=== PATIENT | female | born 2000 | race Caucasian/White ===

== ENCOUNTER 2024-10-31 22:51 | Inpatient (IN) | payer MEDICAID ==
[~2024-10-31] VITALS: Ht 170.2 cm; Wt 75.7 kg
[2024-11-01 00:02] LABS: MEAN PLATELET VOLUME 9.7 FL (7.4-10.4); RED CELL DISTRIBUTION WIDTH 13.8 % (11.5-14.5)
[2024-11-01 00:11] LABS: CREATININE 0.63 MG/DL (0.40-0.90); TOTAL CARBON DIOXIDE 24.3 MMOL/L (24-32); eCRCL 127 ML/MIN; eGFR > 90 ML/MIN
[2024-11-01 00:20] LABS: ETHANOL < 10 MG/DL (<10)
[2024-11-01 00:34] LABS: URINE HCG NEGATIVE (NEG)
[2024-11-01 00:37] LABS: LEUKOCYTE ESTERASE ,URINE NEGATIVE (Neg); NITRITES, URINE NEGATIVE (Neg); OCCULT BLOOD,URINE NEGATIVE (Neg)
[2024-11-01 00:38] LABS: UA COLLECTION TYPE NON-SPECIFIED
[2024-11-01 00:48] LABS: URINE AMPHETAMINE SCREEN NEGATIVE (Neg); URINE BARBITUATE SCREEN NEGATIVE (Neg); URINE BENZODIAZEPINES SCREEN NEGATIVE (Neg)
[2024-11-01 00:49] LABS: URINE CANNABINOID SCREEN NEGATIVE (Neg); URINE COCAINE SCREEN NEGATIVE (Neg); URINE METHADONE SCREEN NEGATIVE (Neg); URINE OPIATE SCREEN NEGATIVE (Neg); URINE PHENCYCLIDINE SCREEN NEGATIVE (Neg)
--- NOTE | 2024-11-01 04:36 | Physician Documentation ---
History of Present Illness ~ Chief Complaint: Mental Health Eval Stated Complaint: MENTAL HEALTH EVAL Time Seen by MD: 22:54 Mode of Arrival: Dropped Off HPI 24 year old female BIB [facility] on 5150 after found on bench mumbling to self. Patient has few complaints other than that her body doesn't feel like her body. Medication Reconciliation Allergies: Coded Allergies: No Known Allergies (Unverified , 10/31/24) Review of Systems All Other Systems at this time: Reviewed and Negative Physical Exam Vital Signs: RN Vital Signs have been reviewed: Yes, Temperature: 98.6, Heart Rate: 96, Respiratory Rate: 10, BP: 123/84, Pulse Oximetry: 98, Weight: 69.200 Oxygen Flow Rate: 0 Physical Exam Gen: disheveled HEENT: PERRL, moist oral mucosa, EOMI Pulmonary: No respiratory distress MSK: no deformity Skin: w/d/i, no rash Neuro: alert, nonfocal Psych: normal affect Progress Results/Orders Results/Orders Orders - OLINDA DIAZ MD Med Rec (10/31/24 23:01) Close Observation Level (10/31/24 23:01) Covid19 Binax Poc Result Entry (10/31/24 23:01) Regular Diet (11/01/24 Breakfast) Completed Orders - OLINDA DIAZ MD Cbc/Diff (10/31/24 23:01) Urinalysis (10/31/24 23:01) Hcg, Ur Ql (10/31/24 23:01) Drug Screen, Urine (10/31/24 23:01) Ethanol (10/31/24 23:01) TSH (10/31/24 23:01) BMP (10/31/24 23:01) Vital Signs 10/31/24 10/31/24 22:54 23:51 Temp 98.6 Pulse 96 Resp 16 10 B/P (MAP) 123/84 Pulse Ox 98 O2 Flow Rate 0 Laboratory Tests Test 10/31/24 23:03 10/31/24 23:17 11/01/24 00:06 SARS-CoV-2 Antigen (Rapid) Negative White Blood Count 10.9 Red Blood Count 4.88 Hemoglobin 15.8 Hematocrit 46.0 H Mean Corpuscular Volume 94.1 Mean Corpuscular Hemoglobin 32.4 H Mean Corpuscular Hemoglobin Concent 34.5 Red Cell Distribution Width 13.8 Platelet Count 249 Mean Platelet Volume 9.7 Neutrophils (%) (Auto) 70.4 Lymphocytes (%) (Auto) 20.6 L Monocytes (%) (Auto) 8.3 Eosinophils (%) (Auto) 0.6 Basophils (%) (Auto) 0.1 Neutrophils # (Auto) 7.7 Lymphocytes # (Auto) 2.3 Monocytes # (Auto) 0.9 Eosinophils # (Auto) 0.1 Basophils # (Auto) 0.0 CBC Comment Sodium Level 135 Potassium Level 3.2 L Chloride Level 100 Carbon Dioxide Level 24.3 Anion Gap 11 Blood Urea Nitrogen 9 Creatinine 0.63 Estimated GFR/1.73 m2 > 90 BUN/Creatinine Ratio 14.3 Glucose Level 101 Calcium Level 10.1 Albumin 4.5 Thyroid Stimulating Hormone (TSH) 1.74 Chemistry Comments Ethyl Alcohol Level < 10 Urine Specimen Description Non-specified Urine Color Yellow Urine Clarity Clear Urine pH 6.0 Urine Specific [place] <=1.005 Urine Protein Negative Urine Glucose (UA) Negative Urine Ketones Negative Urine Occult Blood Negative Urine Nitrite Negative Urine Bilirubin Negative Urine Urobilinogen 0.2 Urine Leukocyte Esterase Negative Volume Urine Centrifuged 10 ml Urine HCG, Qualitative Negative Urine Comment Urine Opiates Screen Negative Urine Methadone Screen Negative Urine Fentanyl Screen Negative Urine Barbiturates Screen Negative Urine Phencyclidine Screen Negative Urine Amphetamines Screen Negative Urine Benzodiazepines Screen Negative Urine Cocaine Screen Negative Urine Cannabinoids Screen Negative Drug Screen Comment Medical Decision Making Findings 24 year old female with apparent drug intoxication and likely drug induced psychosis. Will sign out to oncoming ER physician for [facility] disposition. Differential Dx:Considerations: Include: Alcohol abuse, Bipolar disorder, Encephaloathy, Schizophrenia, Substance abuse Departure Disposition: 30 STILL A PATIENT Impression: Primary Impression: Acute psychosis Condition: Stable Discharge Instructions: Psychosis Referrals: NO PRIMARY CARE PROVIDER (PCP) Education Educated: Patient Signature Scribe Signature: . Attestation: . OLINDA DIAZ MD Nov 01, 2024 04:36
[2024-11-01] MEDS ORDERED: magnesium hydroxide 30ml (MOM) UD suspension PO PRN (18:40)
[2024-11-01] MEDS ORDERED: mag hydrox/Alum hydrox/simeth 30ml oral suspension PO PRN (18:40)
[2024-11-01 19:00] VITALS: RESP 18; O2SAT 100
[2024-11-01] MEDS: POTASSIUM BICARB 20meq eff tab 20 MEQ TABLET.EFF PO STA (19:00)
[2024-11-01 20:00] VITALS: BP 119/74; PULSE 88; RESP 18; TEMP 98.4; O2SAT 100
[2024-11-02 07:00] VITALS: RESP 13
[2024-11-02] MEDS: nicotine 21mg patch - 24 hr TD SCH (07:55)
--- NOTE | 2024-11-02 12:43 | HISTORY AND PHYSICAL ---
History of Present Illness History of Present Illness Pt admitted on a 5150 GD,after she found on bench mumbling to self. Per ED report, patient has few complaints other than that her body doesn't feel like h er body refused assessment in the unit citing that she is very tired. Per chart note, pt arrived in the unit from ED via a wheel chair, was mostly mumbling incoherently, with disorganized speech/thought process, RIS. Has been sleeping since she came to the unit. No safety concerns reported Toxicology =negative of all substances Allergies: Coded Allergies: No Known Allergies (Unverified , 10/31/24) Past Psychiatric History Psychiatric History Not able to obtain at this time Personal History Social Activity NOT ABLE TO OBTAIN AT THIS TIME Developmental Histroy and NOT ABLE TO OBTAIN AT THIS TIME Mental Status Exam OBSERVATION Comments PATIENT REFUSED ASSESSMENT BEHAVIOR: UNCCOPERATIVE INSIGHT: POOR-REFUSING ASSESSMENT JUDGMENT: POOR Assessment/Plan Problems/Diagnosis: (1) Acute psychosis Additional Plan TREATMENT; 1. Zyprexa 10 mg hs 2. Trazodone 50 mg prn insomnia Continue Q 15 safety checks Total time spend is 35 minutes including but not limited to lab/chart/imaging review, discussions with pt RN/SW/CN, ordering meds/labs and documentation Discharge: Unsure at this time, pt presents with acute psychosis, she is also refusing assessment CODING VISIT-PSYCHIATRY Date of Service: Nov 02, 2024 Billing Provider: ILENE REESE DNP Psych Common Visit Codes: [id number] INP/OBS CARE (High) ILENE REESE DNP Nov 02, 2024 12:43
[2024-11-02] MEDS ORDERED: NO HOME MEDS (15:30)
[2024-11-02 19:06] VITALS: RESP 15
[2024-11-02 19:26] VITALS: RESP 16
--- NOTE | 2024-11-02 19:38 | HISTORY AND PHYSICAL ---
History & Physical Providers to CC ~ History of Present Illness Reason for Admit\Complaint: Depression on a 5150 hold History of Present Illness This is the hospitalist history and physical exam on patients hospitalized at [facility] [place] [facility]. The patient was found mumbling to herself on a bench and is admitted for 5150 for being gravely disabled. The patient was wanting to sleep in bed when I went and evaluated her she asked me to come back later I informed her that is I would not be able to do this and thus she answered my questions. The patient has no acute medical complaints or concerns. Allergies: Coded Allergies: No Known Allergies (Unverified , 10/31/24) Home Medications Home Medications Active Reported No Home Medications (Home Med List) Each Past Medical History Past Medical History Depression Past Surgical History Surgical History Comment No prior surgeries Family History Family History: Patient reports no known family medical history. Past Social History Social History Comment Patient denes history of smoking/ drinking alcohol nor any illicit drug use ROS ROS Except for positives in the HPI the rest of the 14 point review systems is negative Exam Vitals: Vital Signs Date Time Temp Pulse Resp B/P (MAP) Pulse Ox O2 Delivery O2 Flow Rate FiO2 11/02/24 19:26 16 Room Air 11/01/24 20:00 98.4 88 119/74 (89) 100 11/01/24 06:01 0 General: Gen. No acute distress, flat affect Lungs clear to ascultation bilaterally, no wheezes rales or rhonchi appreciated Heart normal sinus rhythm no murmurs rubs or clicks noted Abdomen soft nontender bowel sounds are normoactive Lower extremities no clubbing cyanosis, nor edema appreciated bilaterally Diagnostic Data Last Recorded Lab Results: 10/31/24231610/31/242316 Problems: (1) Unspecified psychosis Additional Plan # gravely disabled On a 5150 hold Followed by Psychiatry # hypokalemia Serum potassium of 3.2 on October 31 The patient refused potassium replacement as per nursing staff I ordered a repeat BMP Per nursing the patient is refusing lab draws The hospitalist service will continue to follow the patient Date of Service: Nov 02, 2024 Billing Provider: WALESKA STEVENSON DO Common Visit Codes: [id number] INP/OBS CARE (LOW) WALESKA STEVENSON DO Nov 02, 2024 19:38
[2024-11-03 07:00] VITALS: RESP 14; RESP 16
--- NOTE | 2024-11-03 18:57 | PROGRESS NOTE ---
Progress Note Dictate Providers to CC ~ Antibiotic Ordered?: No Objective Vitals Vital Signs Date Time Temp Pulse Resp B/P (MAP) Pulse Ox O2 Delivery O2 Flow Rate FiO2 11/03/24 07:00 14 11/03/24 07:00 Room Air 0.0 11/01/24 20:00 98.4 88 119/74 (89) 100 Lab Results: 10/31/24 2317 10/31/24 2317 Problem\Assessment\Plan Problems/Diagnosis: (1) Acute psychosis Psychiatrist's Progress Note Date of Service: Nov 03, 2024 Notes Pt admitted on a 5150 GD,after she found on bench mumbling to self. Per ED report, patient has few complaints other than that her body doesn't feel like her body. Per chart note, pt arrived in the unit from ED via a wheel chair, was mostly mumbling incoherently, with disorganized speech/thought process, RIS. Has been sleeping since she came to the unit. No safety concerns reported Assessment: Patient refused assessment, per chart notes, she has refused all assessments and treatment since admission. patient is not cooperative , has not provided a viable discharge plan, spends most of her day in her room sleeping which can be indicative of severe depression or other acute psych symptoms. Will extend hold due to ongoing acute psychiatric symptoms Mental Health Status: BEHAVIOR: UNCOOPERATIVE INSIGHT: POOR-REFUSING ASSESSMENT JUDGMENT: POOR Medication managemen 1. Zyprexa 10 mg hs 2. Trazodone 50 mg prn insomnia Continue Q 15 safety checks Legal: Convert to 5250 Total time spend is 30 minutes including but not limited to lab/chart/imaging review, discussions with pt RN/SW/CN, ordering meds/labs and documentation Discharge: Unsure at this time, pt presents with acute psychosis, she is also refusing assessment CODING VISIT-PSYCHIATRY Date of Service: Nov 03, 2024 Billing Provider: ILENE REESE DNP Psych Common Visit Codes: [id number] INP/OBS CARE(High) ILENE REESE DNP Nov 03, 2024 18:57
[2024-11-03 19:00] VITALS: RESP 18
[2024-11-03 20:00] VITALS: RESP 18
[2024-11-04 07:00] VITALS: RESP 16
[2024-11-04 19:02] VITALS: RESP 15
--- NOTE | 2024-11-04 19:17 | PROGRESS NOTE ---
Daily Progress Note Providers to CC ~ Antibiotic Timeout Antibiotic Ordered?: No Subjective Patient was seen in her room in mental health unit she refused to get examined but looked comfortable and answered my rest of the questions. Objective Vital Signs Date Time Temp Pulse Resp B/P (MAP) Pulse Ox O2 Delivery O2 Flow Rate FiO2 11/04/24 19:02 15 11/04/24 07:00 Room Air 11/03/24 07:00 0.0 11/01/24 20:00 98.4 88 119/74 (89) 100 Result Diagram: 10/31/24231610/31/242316 Patient looks comfortable does not want to get examined Problem\Assessment\Plan Problems/Diagnosis: (1) Unspecified psychosis # gravely disabled On a 5150 hold Followed by Psychiatry # hypokalemia Serum potassium of 3.2 on October 31, repeat potassium level ordered The hospitalist service will continue to follow the patient Date of Service: Nov 04, 2024 Billing Provider: MARLA CASTRO MD Common Visit Codes: [id number] INP/OBS CARE(LOW) MARLA CASTRO MD Nov 04, 2024 19:17
[2024-11-04 19:47] VITALS: RESP 17
--- NOTE | 2024-11-04 22:16 | PROGRESS NOTE ---
Progress Note Dictate Providers to CC ~ Antibiotic Ordered?: No Objective Vitals Vital Signs Date Time Temp Pulse Resp B/P (MAP) Pulse Ox O2 Delivery O2 Flow Rate FiO2 11/04/24 19:47 17 Room Air 11/03/24 07:00 0.0 11/01/24 20:00 98.4 88 119/74 (89) 100 Lab Results: 10/31/24 2317 10/31/24 2317 Problem\Assessment\Plan Problems/Diagnosis: (1) Acute psychosis Psychiatrist's Progress Note Date of Service: Nov 04, 2024 Notes Pt admitted on a 5150 GD,after she found on bench mumbling to self. Per ED report, patient has few complaints other than that her body doesn't feel like her body. Refused assessment in the unit citing that she is very tired. Per chart note, pt arrived in the unit from ED via a wheel chair, was mostly mumbling incoherently, with disorganized speech/thought process, RIS. Has been sleeping since she came to the unit. No safety concerns reported Assessment: Refused to be seen, per chart note, was alert today, loud, demanding, was irritated because she did not eat dinner, stated she had asked for the tray to be saved, apart from that, took her medication and was noted to be more active in the unit. No behavioral or safety concerns reported. Will take some time before any significant improvement in symptoms is seen in patient. Will continue to assess daily and adjust tx as needed. BEHAVIOR: UNCOOPERATIVE INSIGHT: POOR-REFUSING ASSESSMENT JUDGMENT: POOR TREATMENT; 1. Zyprexa 10 mg hs 2. Trazodone 50 mg prn insomnia Continue Q 15 safety checks Legal: Total time spend is 35 minutes including but not limited to lab/chart/imaging review, discussions with pt RN/SW/CN, ordering meds/labs and documentation Discharge: Unsure at this time, patient is compliant in taking meds but is refusing assessments, CODING VISIT-PSYCHIATRY Date of Service: Nov 04, 2024 Billing Provider: ILENE REESE DNP Psych Common Visit Codes: [id number] INP/OBS CARE(Mod) ILENE REESE DNP Nov 04, 2024 22:16
[2024-11-05 07:00] VITALS: RESP 16
[2024-11-05 08:00] VITALS: RESP 16
[2024-11-05 19:00] VITALS: RESP 14
[2024-11-05 20:00] VITALS: RESP 15
[2024-11-05] MEDS: NICOTINE POLACRILEX 2 MG LOZENGE BC PRN (22:02)
--- NOTE | 2024-11-05 22:16 | PROGRESS NOTE ---
Progress Note Dictate Providers to CC ~ Antibiotic Ordered?: No Objective Vitals Vital Signs Date Time Temp Pulse Resp B/P (MAP) Pulse Ox O2 Delivery O2 Flow Rate FiO2 11/05/24 08:00 16 Room Air 11/03/24 07:00 0.0 11/01/24 20:00 98.4 88 119/74 (89) 100 Lab Results: 10/31/24 2317 10/31/242316 Problem\Assessment\Plan Problems/Diagnosis: (1) Acute psychosis Psychiatrist's Progress Note Date of Service: Nov 05, 2024 Notes Pt admitted on a 5150 GD,after she found on bench mumbling to self. Per ED report, patient has few complaints other than that her body doesn't feel like her body. Refused assessment in the unit citing that she is very tired. Per chart note, pt arrived in the unit from ED via a wheel chair, was mostly mumbling incoherently, with disorganized speech/thought process, RIS. Has been sleeping since she came to the unit. No safety concerns reported Assessment: Patient refused assessment with me, per chart notes, she also refused all nursing assessment including V/S, labs. Was sleeping most of the time. patient is taking her medication, no behavioral or safety concerns reported, will continue to monitor, and adjust tx as needed BEHAVIOR: UNCOOPERATIVE INSIGHT: POOR-REFUSING ASSESSMENT JUDGMENT: POOR TREATMENT; 1. Zyprexa 10 mg hs 2. Trazodone 50 mg prn insomnia Continue Q 15 safety checks Total time spend is 35 minutes including but not limited to lab/chart/imaging review, discussions with pt RN/SW/CN, ordering meds/labs and documentation Discharge: Unsure at this time, pt is refusing assessment CODING VISIT-PSYCHIATRY Date of Service: Nov 05, 2024 Billing Provider: ILENE REESE DNP Psych Common Visit Codes: [id number] INP/OBS CARE(Mod) ILENE REESE DNP Nov 05, 2024 22:16
[2024-11-06 08:00] VITALS: RESP 14; RESP 16
--- NOTE | 2024-11-06 14:48 | PROGRESS NOTE ---
Progress Note Dictate Providers to CC ~ Central Line/PICC still needed: N\A Antibiotic Ordered?: No Objective Vitals Vital Signs Date Time Temp Pulse Resp B/P (MAP) Pulse Ox O2 Delivery O2 Flow Rate FiO2 11/06/24 08:00 14 Room Air 11/03/24 07:00 0.0 Problem\Assessment\Plan Problems/Diagnosis: (1) Unspecified psychosis Psychiatrist's Progress Note Date of Service: Nov 06, 2024 Notes Augustina Sanchez is a 24yo female who was brought to the [facility] ED on a 5150 GD,after she found on bench mumbling to self. Per ED report, patient has few complaints other than that her body doesn't feel like her body. Patient is of average height and weight. She has long dark disheveled unwashed hair. She has on green hospital scrubs. Significant body odor and her surrounds are in disarray with food etc all over the bed. She says she wants some housing. She does not know if she has medical insurance or not. She does not remember why she is here. She states she is 'fine'. Denies depression or anxiety. Denies AH/VH or paranoid thinking. Does not express delusions. She says she is eating but missed her lunch because she was sleeping and would like it brought to her now at 4:30 in the afternoon. Food was offered. She says she came here because 'nowhere to go.' Says 'how the fuck did I get here?' She complains of her room and the current room mate stating she does not like her room mate. Wants to switch rooms. She isolates and has been sleeping a lot. Patient is a poor historian with very poor insight. Something trying to eat me... then says no I'm good. She makes odd comments then says 'oh never mind.' Mental Status Eye contact: Poor; Behavior: Mildly Cooperative. Very guarded, restless. Got up and paced around doing things as we talked. Speech: minimal but clear. A little bit disorganized. Sensoriom: Seems a bit confused. Mood: 'I'm fine' Affect: Constricted. Easily agitated. Thought process: Mild disorganization, Circumstantial at times. ? Paranoid Did not express Delusions. Thought Content: immediate needs/housing. Cognition: A&O X3 not truly why; Insight: Very Poor; Judgment: Very Poor; SI Denies/HI Denies, AH Denies, but is definitely seen responding to internal stimuli at times/VH Denies Results Of any Diagn. Testing Labs reviewed. Low potassium, but fairly WNL. TSH WNL HCG- NEG Toxicology =negative of all substances Treatment We will increase the Olanzapine. She is taking the medication and does seem to be starting to clear up. Some of her 'stuff' is behavioral. As she clears mentally we will see how much of her behaviors are from a possible comorbid personality disorder. Zyprexa 10 mg hs Trazodone 50 mg prn insomnia Monitoring by Staff, Milieu, Group, and Individual counseling as needed -- According to the [place] Suicide Assessment the above named patient is on Q 15 MINUTE CHECKS. 5250-- GD-- The patient is unable to formulate a viable plan for food, clothing and usp. We are still titrating medications to an effective dose while maintaining a therapeutic environment to prevent decompensation and readmission. DISCHARGE UNSURE AT THIS TIME. PATIENT IS HOMELESS REVIEW OF Clinical notes [X ] RN notes [X] PCT documentation [X] notes [X] Labs [ X] Medications [X] Care trends/care activity [X] Vitals [X] DISCUSSION WITH sign language instructor [X] CODING VISIT-PSYCHIATRY Date of Service: Nov 06, 2024 Billing Provider: ROBB ARSHAD Psych Common Visit Codes: [id number] INP/OBS CARE(High) ROBB ARSHAD Nov 06, 2024 14:48
[2024-11-06] MEDS: lactose-reduced food (Ensure Enlive) - 237ml bottle PO SCH (18:30)
[2024-11-06 19:00] VITALS: RESP 15
--- NOTE | 2024-11-06 19:41 | PROGRESS NOTE- Residence ---
Progress Note - Resident Providers to CC Resident Creating Document: MAINOR HUANG RES ~ Antibiotic Timeout Antibiotic Ordered?: No Objective Vital Signs Date Time Temp Pulse Resp B/P (MAP) Pulse Ox O2 Delivery O2 Flow Rate FiO2 11/06/24 08:00 14 Room Air 11/03/24 07:00 0.0 General: Awake and Alert, no acute distress. HEENT: Conjunctiva pink, Sclera clear, Mucus Membranes moist. Neck: Supple without masses and tenderness. Resp: Unlabored. Lungs clear to auscultation bilaterally. Heart: Regular Rate and rhythm, normal S1 and S2 without murmur, rub or gallop. Abdomen: It is soft, non tender, no rigidity,bowel sounds present. Extremities: No cyanosis,clubbing. Skin: Warm. Assessment Assessment Patient seen at [facility] unit. Patient denies any shortness of breath, denies chest pain or any other problem and looks comfortable. Plan Plan (1) Unspecified psychosis # gravely disabled On a 5150 hold Followed by Psychiatry # hypokalemia Serum potassium of 3.2 on October 31 Repeat K level ordered. The hospitalist service will continue to follow the patient. Date of Service: Nov 06, 2024 Billing Provider: IVY KIM MD Common Visit Codes: [id number] INP/OBS CARE(MOD) MAINOR HUANG RES Nov 06, 2024 19:41 IVY KIM MD Nov 06, 2024 20:21
[2024-11-06 20:00] VITALS: RESP 15
[2024-11-07 07:00] VITALS: RESP 14
[2024-11-07 08:00] VITALS: RESP 14
--- NOTE | 2024-11-07 12:03 | PROGRESS NOTE ---
Progress Note Dictate Providers to CC ~ Central Line/PICC still needed: N\A Antibiotic Ordered?: No Objective Vitals Vital Signs Date Time Temp Pulse Resp B/P (MAP) Pulse Ox O2 Delivery O2 Flow Rate FiO2 11/07/24 08:00 14 Room Air 11/03/24 07:00 0.0 Problem\Assessment\Plan Problems/Diagnosis: (1) Unspecified psychosis Psychiatrist's Progress Note Date of Service: Nov 07, 2024 Notes Augustina Sanchez is a 24yo female who was brought to the [facility] ED on a 5150 GD,after she found on bench mumbling to self. Per ED report, patient has few complaints other than that her body doesn't feel like her body. Patient is of average height and weight. She has long dark disheveled unwashed hair. She has on green hospital scrubs. Significant body odor and her surrounds are in disarray with food etc all over the bed. Nothing going on. 'just waiting to get out of here.' Usually get a ride home. She wants to go to [facility]. Homeless. Denies AH/VH. Denies feeling paranoid. Denies depression. Some anxiety. She says she doesn't know why she was put here. 'nowhere else to put me.' 'I needed a place to say for a minute.' 'Sounds like someone has alzeheimers' People just trying to put me... and it's just nasty. She is refusing the medication. 'because I don't need it... and that is also not my voice.' She tried to sleep but slept only a little bit. 'I don't want to live anyone else's life... I just want to have my own voice.' She acts like she is responding to internal stimuli. She is nervous and guarded. Looking around the room. She says if she did take the med, then would she be able to leave? She says she won't take the medication even if she we give it to her. Mental Status Eye contact: Poor; Behavior: Mildly Cooperative. Very guarded, restless. Got up and paced around doing things as we talked. Speech: minimal but clear. A little bit disorganized. Sensoriom: Seems a bit confused. Mood: 'I'm fine' Affect: Constricted. Easily agitated. Thought process: Mild disorganization, Circumstantial at times. Definitely acting Paranoid Did not express Delusions. Thought Content: immediate needs/housing. Cognition: A&O X3 not truly why; Insight: Very Poor; Judgment: Very Poor; SI Denies/HI Denies, AH Denies, but is definitely seen responding to internal stimuli at times/VH Denies Results Of any Diagn. Testing Labs reviewed. Low potassium, but fairly WNL. TSH WNL HCG- NEG Toxicology =negative of all substances Treatment Encourage her to take the Olanzapine. She is taking the medication and does seem to be starting to clear up. Some of her 'stuff' is behavioral. As she clears mentally we will see how much of her behaviors are from a possible comorbid personality disorder. Zyprexa 20 mg hs Trazodone 50 mg prn insomnia Monitoring by Staff, Milieu, Group, and Individual counseling as needed -- According to the [place] Suicide Assessment the above named patient is on Q 15 MINUTE CHECKS. 5250-- GD-- The patient is unable to formulate a viable plan for food, clothing and alf. We are still titrating medications to an effective dose while maintaining a therapeutic environment to prevent decompensation and readmission. DISCHARGE UNSURE AT THIS TIME. PATIENT IS HOMELESS REVIEW OF Clinical notes [X ] RN notes [X] PCT documentation [X] SW notes [X] Labs [ X] Medications [X] Care trends/care activity [X] Vitals [X] DISCUSSION WITH manager lvn [X] CODING VISIT-PSYCHIATRY Date of Service: Nov 07, 2024 Billing Provider: ROBB ARSHAD Psych Common Visit Codes: [id number] INP/OBS CARE(Mod) ROBB ARSHAD Nov 07, 2024 12:03
[2024-11-07 19:00] VITALS: RESP 16; O2SAT 96
[2024-11-07 20:00] VITALS: BP 120/72; PULSE 101; RESP 16; TEMP 97.6; O2SAT 96
[2024-11-08 07:00] VITALS: RESP 16
[2024-11-08 08:00] VITALS: RESP 16
--- NOTE | 2024-11-08 17:43 | PROGRESS NOTE- Residence ---
Progress Note - Resident Providers to CC Resident Creating Document: ENRIQUETA RODRIGUEZ, RES ~ Antibiotic Timeout Antibiotic Ordered?: No Subjective Seen and examined the patient at bedside today. She stated that she does not have any systemic complaints. Objective Vital Signs Date Time Temp Pulse Resp B/P (MAP) Pulse Ox O2 Delivery O2 Flow Rate FiO2 11/08/24 08:00 16 11/08/24 07:00 Room Air 0.0 11/07/24 20:00 97.6 101 120/72 (88) 96 General: Awake and Alert, oriented to time, place, person. no acute distress. HEENT: Conjunctiva pink, Sclera clear, Mucus Membranes moist. Neck: Supple without masses and tenderness. Resp: Unlabored. Lungs clear to auscultation bilaterally. No crepitation/wheezing Heart: Regular Rate and rhythm, normal S1 and S2 without murmur, rub or gallop. Abdomen: It is soft, non tender, no rigidity,bowel sounds present. Extremities: No cyanosis,clubbing, pedal edema. Skin: Warm & moist. Advance Care Planning Advanced Care plannin - 30 Minutes Assessment Assessment Patient seen at [facility] unit. Patient denies any shortness of breath, denies chest pain or any other problem and looks comfortable. Plan Plan 1)Unspecified psychosis 2) Gravely disabled On a 5150 hold Followed by Psychiatry Hypokalemia Serum potassium of 3.2 on October 31 Ordered serum potassium and will follow up with the results Ordered 40 mEq of potassium supplements on 11/01/2024 and she refused the p.o. potassium. The hospitalist service will continue to follow the patient. Enriqueta Rodriguez IM resident, PGY 2 Date of Service: Nov 08, 2024 Billing Provider: LARRY GRAFF MD Common Visit Codes: [id number] INP/OBS CARE(MOD) ENRIQUETA RODRIGUEZ, FUAD Nov 08, 2024 17:43 LARRY GRAFF MD Nov 15, 2024 15:43
[2024-11-08 20:00] VITALS: RESP 16
--- NOTE | 2024-11-08 21:06 | PROGRESS NOTE ---
Progress Note Dictate Providers to CC ~ Antibiotic Ordered?: No Objective Vitals Vital Signs Date Time Temp Pulse Resp B/P (MAP) Pulse Ox O2 Delivery O2 Flow Rate FiO2 11/08/24 19:00 Room Air 11/08/24 08:00 16 11/08/24 07:00 0.0 11/07/24 20:00 97.6 101 120/72 (88) 96 Problem\Assessment\Plan Problems/Diagnosis: (1) Acute psychosis Psychiatrist's Progress Note Date of Service: Nov 08, 2024 Notes Notes Pt admitted on a 5150 GD,after she found on bench mumbling to self. Per ED report, patient has few complaints other than that her body doesn't feel like her body. Refused assessment in the unit citing that she is very tired. Per chart note, pt arrived in the unit from ED via a wheel chair, was mostly mumbling incoherently, with disorganized speech/thought process, RIS. Has been sleeping since she came to the unit. No safety concerns reported Assessment: Per report, patient is isolating, will only eat in her room, minimal interaction with staff or peers, mostly nods her head yes or no. Refused assessment today but is compliant with meds. no behavioral or safety concerns reported, will continue to monitor, and adjust tx as needed BEHAVIOR: UNCOOPERATIVE INSIGHT: POOR-REFUSING ASSESSMENT JUDGMENT: POOR TREATMENT; 1.Start Abilify 5 mg daily 2.Continue Zyprexa 20 mg hs 2. Trazodone 50 mg prn insomnia Continue Q 15 safety checks Total time spend is 35 minutes including but not limited to lab/chart/imaging review, discussions with pt RN/SW/CN, ordering meds/labs and documentation Discharge: Unsure at this time, pt is refusing assessment CODING VISIT-PSYCHIATRY Date of Service: Nov 08, 2024 Billing Provider: ILENE REESE DNP Psych Common Visit Codes: [id number] INP/OBS CARE(Mod) ILENE REESE DNP Nov 08, 2024 21:06
[2024-11-09 07:00] VITALS: BP 96/40; PULSE 63; RESP 16; TEMP 97.5; O2SAT 98
[2024-11-09 08:00] VITALS: RESP 16
[2024-11-09 19:00] VITALS: RESP 16
[2024-11-09 20:00] VITALS: RESP 16
--- NOTE | 2024-11-09 21:47 | PROGRESS NOTE ---
Progress Note Dictate Providers to CC ~ Antibiotic Ordered?: No Objective Vitals Vital Signs Date Time Temp Pulse Resp B/P (MAP) Pulse Ox O2 Delivery O2 Flow Rate FiO2 11/09/24 20:00 16 Room Air 11/09/24 07:00 97.5 63 96/40 (58) 98 11/08/24 07:00 0.0 Psychiatrist's Progress Note Notes HPI: 11/02/24 admitted on a 5150 hold for grave disability. Per records her main concern was her body dosnt feel like her body. On arrival to the unit was mumbling incoherently, disorganized speech/thought process, appeared to be responding to internal stimuli. Refused initial H&P assessment with provider, diagnosed with acute psychosis, was started on Olanzapine 10 mg po qhs. 11/06 provider notes indicate mild improvement in psychotic symptoms, olanzapine was increased. 11/01/24: Urine drug screen negative Psychiatric History: 11/04/24 per Lizzie RN note: Mother called and provided some insight into Solo's pass. mother stated that patient began suffering with anxiety when she was a teenager. drug started with marijuana and eventually led to heroin use. patient's mother stated that they could no longer have her in the house when she brought needles and heroin into the home. patient has been hospitalized for mental illness 10 to 12 times or more. she's been in and out of rehabs and sober livings. her mother stated that patient has been hitchhiking Recently and ended up with someone named jose. this person has called here multiple times trying to get information on the p atient and her discharge. it is unknown if this patient is linked to her arrival at the hospital. patient's mother does not want her to have contact with him. she is very worried about what has happened to her with this man, and another man who left her out of state, and she didn't know where she was or how to get home. her mother said that she has been staying in a motorhome with one of these men. her mother has filed a missing person report. should you leave that her daughter Solo is here and safe. Current Psychosocial Dynamics: Homeless. Per nursing notes a male called asking to talk to solo and she was adamant that one no talk to the man. - 11/09 Assesment Per 11/09/24 case management note by Lorrie TOLEDOW: Unsure of how she got to [place], [place]. Wants to go to nursing home, unsure of what nursing home. patient has no resources and is at high risk of further decompensation if discharged prematurely The patient spent the majority of the day sleeping in her room, denied anxiety, SI, HI, stated she didnt want to talk today. Not participating in the milieu or groups, has been refusing to eat in the group room. Status: 5250- Grave Disability, she is unable to formulate a viable plan for maintaining nutrition, nursing home, clothing due to severity of disorganized behavior. Suicide/Self Harm Risk: low Violence Risk: low Elopement Risk: low Fall risk: low - Medications: Aripiprazole 5 mg po qd - refused (initially prescribed on 11/08, hasnt started med) Olanzapine 20 mg po qhs- taking Ensure BID- taking PRNS: (no recent administrations) Thorazine 50 mg po Q6 Prn agitation Hydroxyzine 50 mg po Q6 PRN anxiety Trazodone 50 mg po prn insomnia Acetaminophen 650 mg q4H prn pain Bendryl 50 mg po prn for EPS Loperamide 2 mg po prn diarrhea Magnesium Hydroxide 30 ml prn constipation AL Hydroxyide/Mg Hydroxide 30 ml prn dyspepsia - Side Effects: Denies No evidence of TD, EPS AIMs: 0 - Review of Psychiatric Symptoms: Mood: Persistent depression, withdrawn, isolative Suicide/self-harm: denies Sleep: quality sleep, hypersomnia- spending the majority of the day in bed Appetite: adequate denies concerns Energy: poor, low motivation Anxiety: denies Irritability: per nursing reports has been sarcastic and irritable at times Homicidal/Anger: denies Hallucinations/Paranoia: denies AVH, no overt paranoia verbalized, Trauma symptoms: Denies - Historical Psych Medications: none noted - Mental Status Evaluation General Appearance: poorly groomed Eye contact: avoidant, Demeanor: withdrawn Orientation: to person, place, time, situation Speech: Appropriate rate/rhythm/volume Psychomotor Activity:decreased Gait: steady Mood: ok Affect: blunted Suicidality: denies suicidal ideation Homicidally: denies Thought content: consistent with social norms Thought process: poverty of thought Thought perceptions: no perceptual disorder noted Memory: appears intact Attention: appear attentive Insight: limited Judgment: limited - Review of Physical Systems: Denies malaise, other flu like symptoms Denies falls, fatigue, weakness, confusion, dizziness, memory loss Denies tingling/numbness, tremor Denies SOB, chest pain, palpitations, fainting Denies nausea, diarrhea, constipation Denies chronic pain All other systems reviewed negative Current Medical Problems: Hypokalemia- 10/31/24 Potassium 3.2 11/01/24- Potassium 40 mEq ordered by patient refused medication -has been refusing follow up lab draw Medical History Allergies: No no allergies Cardiac HX: Denies TBI Hx: unable to assess Seizure Hx: unable to assess JUAN Hx: unable to assess Treatment Diagnoses Unspecified psychotic disorder Hx of polysubstance use, IVDU (Utox negative on admission) r/o trauma and stressor related disorder Assessment: Solo is a 24 year old male who presents for evaluation and treatment for psychosis unspecified, 5250 for grave disability. Since admission on 11/02/24 it appears that overt symptoms of psychosis are no longer observable. Continues to exhibit negative symptoms of psychosis, avolition, poverty of speech, isolating to room. Will continue the current dose of olanzapine to address. Will further reach out to mother to coordinate care, attain a more comprehensive psychiatric history with the aim to clarify diagnosis and improve context of patients current symptom presentation. Concern for inability to care for herself due to lack of functionality, lack of self care and capacity to community. Based on reported psychosocial situation before hospitalization concern that her inability to care for self is a significant vulnerability to exploitation by others. Safety risk: Low risk of imminent self-harm, Low risk of externalized violent behaviors. Plan Continue Olanzapine 20 mg po qhs Discontiue aripipraozle 5 mg po qd (no clear indication to start medication) Care coordination with mother Annette Care coordination with social work/operations support coordinator Continue Q15 min checks Encourage Groups/Milieu Engagement Discharge Plan: unclear Discussed risks, including possible adverse effects, and benefits of treatment recommendations including no treatment. Voice recognition software may have been used to dictate this note. There may be errors due to use of such software. Reporting of serious errors is appreciated. CODING VISIT-PSYCHIATRY Date of Service: Nov 09, 2024 Billing Provider: AVINASH DEL ANGEL DNP Psych Common Visit Codes: [id number] INP/OBS CARE(Mod) AVINASH DEL ANGEL [facility] Nov 09, 2024 21:46
[2024-11-10 07:00] VITALS: RESP 14
[2024-11-10 08:00] VITALS: RESP 16
--- NOTE | 2024-11-10 10:34 | PROGRESS NOTE ---
Daily Progress Note Providers to CC No new complaint today, resting comfortably in the bed ~ Central Line/PICC still needed: No Rowell-Non Protocol Rowell Indications Met/Not Met: F/C Indications Not Met Antibiotic Timeout Antibiotic Ordered?: No MRSA Education MRSA Education Provided to pt: No Subjective As above Objective Vital Signs Date Time Temp Pulse Resp B/P (MAP) Pulse Ox O2 Delivery O2 Flow Rate FiO2 11/10/24 08:00 16 Room Air 11/09/24 07:00 97.5 63 96/40 (58) 98 11/08/24 07:00 0.0 Vital signs, stable ,afebrile. Pulse Oximetry reflects adequate oxygenation. General: well developed, well nourished. Awake , alert, and oriented x4, resting comfortably in the bed, in no acute distress . Skin: Warm, dry, no pallor, no rash or petechiae. HEENT: Atraumatic, normocephalic, EOMI, anicteric sclera B; pink conjunctiva; PERRLA, normal oropharynx, moist oral and nasal mucosa. Tympanic membrane , nose , throat clear. Neck: Trachea midline. Supple, full range of motion, no JVD, bruit , hepatojugular reflex , lymphadenopathy or masses, or other lesions Cardiac: Regular rhythm, regular rate no murmurs, rubs, or gallops. Normal S1 and S2, no S3 noticed. PMI is normal. Respiratory: Equal breath sounds bilaterally, no tachypnea; lungs clear to auscultation bilaterally, no wheezing ,rub or rales, or crackles. Chest wall is symmetric and without deformity. No signs of trauma. Chest wall is nontender. No signs of respiratory distress. Resonance is normal upon percussion bilaterally. Gastrointestinal: Abdomen symmetric, non-distended, soft, non-tender, normal bowel sounds x4 quadrant, normoactive, no hepatosplenomegaly , no masses , no bruit, no flank pain bilaterally. No voluntary guarding, rebound, or rigidity. No tenderness to percussion. No pulsatile masses. Equal femoral pulses. No Gatica's sign or McBurney point tenderness. Back; no CVA tenderness bilaterally, no deformities. Neck and back are without deformity as well. No tenderness noted on palpation of the spinous processes. Spinous processes are midline. Cervical, thoracic, and lumbar paraspinal muscles are not tender and are without spasm. : normal external genitalia, without lesions, swelling, masses or tenderness. Musculoskeletal: Extremities, normal range of motion, non-tender, muscle strength 5/5 x 4. Negative Homans signs bilaterally on lower extremity. Distal pulses full symmetrical, no clubbing, cyanosis , edema. Neurological: Speech is clear, alert, and oriented x 4. No motor or sensory deficit, deep tendon reflexes normal, cerebellar intact. Cranial nerves II-XII intact. Psych: Alert and or appropriate, normal affect. Vascular: Good distal pulses, which are equal x4; capillary refill less than 2 seconds. Lymphatic, no lymphadenopathy. Problem\Assessment\Plan Problems/Diagnosis: (1) Unspecified psychosis Assessment/plan # gravely disabled On a 5150 hold Followed by Psychiatry # hypokalemia Serum potassium of 3.2 on October 31, repeat potassium level ordered The hospitalist service will continue to follow the patient Sepsis Screening Reassessment Date: Nov 10, 2024 Date of Service: Nov 10, 2024 Billing Provider: CHEMA HOWE MD Common Visit Codes: [id number] INP/OBS CARE(LOW) CHEMA HOWE MD Nov 10, 2024 10:34
--- NOTE | 2024-11-10 19:44 | PROGRESS NOTE ---
Progress Note Dictate Providers to CC ~ Antibiotic Ordered?: No Objective Vitals Vital Signs Date Time Temp Pulse Resp B/P (MAP) Pulse Ox O2 Delivery O2 Flow Rate FiO2 11/10/24 19:00 Room Air 11/10/24 08:00 16 11/09/24 07:00 97.5 63 96/40 (58) 98 11/08/24 07:00 0.0 Psychiatrist's Progress Note Notes HPI: 11/02/24 admitted on a 5150 hold for grave disability. Per records her main concern was her body dosnt feel like her body. On arrival to the unit was m umbling incoherently, disorganized speech/thought process, appeared to be responding to internal stimuli. Refused initial H&P assessment with provider, diagnosed with acute psychosis, was started on Olanzapine 10 mg po qhs. 11/06 provider notes indicate mild improvement in psychotic symptoms, olanzapine was increased. 11/01/24: Urine drug screen negative Psychiatric History: 11/04/24 per Lizzie RN note: Mother called and provided some insight into Solo's pass. mother stated that patient began suffering with anxiety when she was a teenager. drug started with marijuana and eventually led to heroin use. patient's mother stated that they could no longer have her in the house when she brought needles and heroin into the home. patient has been hospitalized for mental illness 10 to 12 times or more. she's been in and out of rehabs and sober livings. her mother stated that patient has been hitchhiking Recently and ended up with someone named jose. this person has called here multiple times trying to get information on the patient and her discharge. it is unknown if this patient is linked to her arrival at the hospital. patient's mother does not want her to have contact with him. she is very worried about what has happened to her with this man, and ano ther man who left her out of state, and she didn't know where she was or how to get home. her mother said that she has been staying in a motorhome with one of these men. her mother has filed a missing person report. should you leave that her daughter Solo is here and safe. Current Psychosocial Dynamics: Homeless. Per nursing notes a male called asking to talk to solo and she was adamant that one no talk to the man. - 11/10 Assesment Per nursing staff has been out of her room more, making some brief conversation, expressing motivation to improve hygiene. Took her medication but refused vital signs. Expressed desire to talk to social work. On assessment today she states has had a little bit more energy in asad morning, feels very lethargic. Showered last night, would like to go home. States she would like to discharge, would like to get a pamphlet other support centers near [place]. Showered last night. Status: 5250- Grave Disability, she is unable to formulate a viable plan for maintaining nutrition, group home, clothing due to severity of disorganized behavior. Suicide/Self Harm Risk: low Violence Risk: low Elopement Risk: low Fall risk: low - Medications: Aripiprazole 5 mg po qd - Olanzapine 20 mg po qhs Ensure BID- taking PRNS: (no recent administrations) Thorazine 50 mg po Q6 Prn agitation Hydroxyzine 50 mg po Q6 PRN anxiety Trazodone 50 mg po prn insomnia Acetaminophen 650 mg q4H prn pain Bendryl 50 mg po prn for EPS Loperamide 2 mg po prn diarrhea Magnesium Hydroxide 30 ml prn constipation AL Hydroxyide/Mg Hydroxide 30 ml prn dyspepsia - Side Effects: Denies No evidence of TD, EPS AIMs: 0 - Review of Psychiatric Symptoms: Mood: denies depressed mood, withdrawn, isolative Suicide/self-harm: denies Sleep: quality sleep, hypersomnia- spending the majority of the day in bed Appetite: adequate Energy: poor, low motivation Anxiety: denies Irritability: denies Homicidal/Anger: denies Hallucinations/Paranoia: denies AVH, no overt paranoia verbalized, Trauma symptoms: Denies - Historical Psych Medications: none noted - Mental Status Evaluation General Appearance: poorly groomed Eye contact: avoidant, Demeanor: withdrawn Orientation: to person, place, time, situation Speech: Appropriate rate/rhythm/volume Psychomotor Activity:decreased Gait: steady Mood: fine Affect: blunted Suicidality: denies suicidal ideation Homicidally: denies Thought content: consistent with social norms Thought process: poverty of thought Thought perceptions: no perceptual disorder noted Memory: appears intact Attention: appear attentive Insight: limited Judgment: limited - Review of Physical Systems: Denies malaise, other flu like symptoms Denies falls, fatigue, weakness, confusion, dizziness, memory loss Denies tingling/numbness, tremor Denies SOB, chest pain, palpitations, fainting Denies nausea, diarrhea, constipation Denies chronic pain All other systems reviewed negative Current Medical Problems: Hypokalemia- 10/31/24 Potassium 3.2 11/01/24- Potassium 40 mEq ordered by patient refused medication -has been refusing follow up lab draw Medical History Allergies: No no allergies Cardiac HX: Denies TBI Hx: unable to assess Seizure Hx: unable to assess JUAN Hx: unable to assess - Treatment Diagnoses Unspecified psychotic disorder Hx of polysubstance use, IVDU (Utox negative on admission) r/o trauma and stressor related disorder Assessment: Solo is a 24 year old male who presents for evaluation and treatment for psychosis unspecified, 5250 for grave disability. Since admission on 11/02/24 it appears that overt symptoms of psychosis are no longer observable. Continues to exhibit negative symptoms of psychosis, avolition, poverty of speech, isolating to room. Appears more animated in the past 24 hours, has showered, is more conversational. Will decrease the current dose of olanzapine due to concerns of oversedation and will cross taper to aripiprazole. Will further reach out to mother to coordinate care, attain a more comprehensive psychiatric history with the aim to clarify diagnosis and improve context of patients current symptom presentation. Concern for inability to care for herself due to lack of functionality, lack of self care and capacity to community. Based on reported psychosocial situation before hospitalization concern that her inability to care for self is a significant vulnerability to exploitation by others. Safety risk: Low risk of imminent self-harm, Low risk of externalized violent behaviors. Plan Decrease Olanzapine from 15 to 20 mg po qhs Continue aripipraozle 5 mg po qd Care coordination with mother Annette Care coordination with social work/meeting coordinator Continue Q15 min checks Encourage Groups/Milieu Engagement Discharge Plan: Social work is working on coordinating care with mother and resources available in her home [facility]. Additionally been concern for her safety post discharge in regards to the gentleman who keeps calling the unit requesting information on her. Spent approximately 45 minutes reviewing records and test results, assessing and treatment planning, completing care coordination and documenting the encounter. Discussed risks, including possible adverse effects, and benefits of treatment recommendations including no treatment. Voice recognition software may have been used to dictate this note. There may be errors due to use of such software. Reporting of serious errors is appreciated. CODING VISIT-PSYCHIATRY Date of Service: Nov 10, 2024 Billing Provider: AVINASH DEL ANGEL DNP Psych Common Visit Codes: [id number] INP/OBS CARE(Mod) AVINASH DEL ANGEL DNP Nov 10, 2024 19:44
[2024-11-10 19:50] VITALS: BP 129/62; PULSE 95; RESP 16; TEMP 98.1; O2SAT 98
[2024-11-10 19:51] VITALS: RESP 16; O2SAT 98
[2024-11-10] MEDS: ibuprofen tablet 400 MG TABLET PO PRN (19:58)
[2024-11-10] MEDS: OLANZAPINE 5 MG TABLET PO SCH (19:58)
[2024-11-11 08:00] VITALS: BP 115/61; PULSE 89; RESP 16; TEMP 97.9; O2SAT 99
[2024-11-11] MEDS: potassium Cl 20 mEq SR tablet PO SCH (08:30)
[2024-11-11 19:00] VITALS: RESP 16
[2024-11-11 20:00] VITALS: RESP 16
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
[2024-11-12 07:00] VITALS: RESP 18
[2024-11-12 08:00] VITALS: RESP 18
--- NOTE | 2024-11-12 10:04 | PROGRESS NOTE ---
Daily Progress Note Providers to CC ~ Antibiotic Timeout Antibiotic Ordered?: No Objective Vital Signs Date Time Temp Pulse Resp B/P (MAP) Pulse Ox O2 Delivery O2 Flow Rate FiO2 11/11/24 20:00 16 11/11/24 19:00 Room Air 11/11/24 08:00 97.9 89 115/61 (79) 99 11/08/24 07:00 0.0 Gen. awake alert oriented asymptomatic HEENT: Normocephalic, atraumatic, extraocular movements are intact, sclera anicteric, conjunctiva pinkish, moist oral mucosa, no rash or ulcers. NECK: Supple, no JVD, trachea midline. CHEST: Clear to auscultation, no wheezes crackles or rhonchi. HEART: Regular rate rhythm, no murmur gallop or rub. ABDOMEN: Soft, nontender, no organomegaly. EXTREMITIES: No cyanosis clubbing or edema. NEURO EXAM: Grossly nonfocal. MUSCULOSKELETAL : No joint swelling or deformities. SKIN: No rash or ulcers noted. Problem\Assessment\Plan Problems/Diagnosis: (1) Unspecified psychosis Assessment/plan # gravely disabled :On a 5150 hold Followed by Psychiatry # hypokalemia : Replace per protocol The hospitalist service will continue to follow the patient. I will sign off Date of Service: Nov 12, 2024 Billing Provider: CHRISTINA CASTELAN MD Common Visit Codes: [id number] INP/OBS CARE(LOW) CHRISTINA CASTELAN MD Nov 12, 2024 10:04
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
[2024-11-12 19:00] VITALS: RESP 17; O2SAT 97
[2024-11-12 20:00] VITALS: BP 124/76; PULSE 94; RESP 17; TEMP 98; O2SAT 97
[2024-11-13 07:00] VITALS: RESP 16
[2024-11-13 08:00] VITALS: RESP 16
--- NOTE | 2024-11-13 12:20 | PROGRESS NOTE ---
Progress Note Dictate Providers to CC ~ Central Line/PICC still needed: N\\A Antibiotic Ordered?: No MRSA Education MRSA Education Provided to pt: No Objective Vitals Vital Signs Date Time Temp Pulse Resp B/P (MAP) Pulse Ox O2 Delivery O2 Flow Rate FiO2 11/12/24 20:00 98.0 94 17 124/76 (92) 97 Room Air 11/12/24 19:00 0.0 Psychiatrist's Progress Note Date of Service: Nov 13, 2024 Notes CHART REVIEW Pt is a 24-year-old female who was found by police sitting in a park on a bench mumbling and not making sense. Pt was placed on a hold for GD due to not being able to formulate a plan for food, clothing and care home. Pt has been difficult to assess since admit, refusing to talk, answering questions with on "yes" or "no" answers, refusing psychiatric assessments and medications. Pt continues to be gravely disabled and unable to formulate a plan for safety. A nursing note states that a male called for the pt and the pt was adament that no one talk to the man. Will continue to attempt to assess the pt for mh sx and safe discharge plan. ASSESSMENT The patient was interviewed in observation room. The patient was actively resting in bed with eyes open. The patient endorses "I am doing okay, I would like to take a shower." The patient endorses she would like her options open to go to [employer] or to her friend Zhane's [employer]. The patient endorses no worsening mental health symptoms. Denies SI. Denies HI. Denies AVH. The patient endorses adequate sleep and food intake. The patient is stable no acute distress noted. The patient as calm, cooperative, and engaged during session. Per staff report patient is medication compliant. Per staff report no abnormal behaviors. Will continue daily assessment and adjusting treatment as needed. Closely monitor behavior and response to medication during hospitalization. Appearnace: Other (APPROPRIATE. WEARING STREET CLOTHING. LONG BROWN HAIR.) Speech: Other (CIRCUMSTANTIAL. NORMAL RATE. NORMAL RHYTHM. NORMAL VOLUME.) Eye Contact: Normal Motor Activity: Normal Affect: Full Orientation Impairment: None Memory Impairment: None Attention: Normal Hallucinations: None Other: None Suicidality: None Homicidality: None Delusions: None Behavior: Cooperative Insight: Poor Judgment: Fair Treatment OLANZAPINE 2.5-5 MG P.O. PRN Q.12 HOURS OLANZAPINE 15 MG P.O. Q.H.S. BUPROPION SR 100 MG P.O. B.I.D. TRAZODONE 50 MG P.O. Q.H.S. PRN Monitoring by Staff, Milieu, Group, and Individual counseling as needed -- According to the [place] Suicide Assessment the above named patient is on Q15 MINUTE CHECKS. [id number]-Patient is unable to formulate a plan to safely meet their basic needs of food, clothing, and care home due to the severity of their mental illness. We are still titrating medications to an effective dose while maintaining a therapeutic environment to prevent decompensation and readmission. Total time spent 40 minutes on REVIEW OF Clinical notes [X ] RN notes [X] PCT documentation [X] SW notes [ X] Labs [ X] Medications [X] Care trends/care activity [X] Vitals [X] DISCUSSION WITH desk clerks supervisor [X] Staff SW [X] Treatment Team [X] Voice recognition software may have been used to dictate this note. There may be errors due to use of such software. Reporting of serious errors is appreciated. Discharge UNSURE AT THIS TIME. PATIENT IS ON LPS WAITING ON PLACEMENT CODING VISIT-PSYCHIATRY Date of Service: Nov 13, 2024 Billing Provider: SHIRIN JUARES APRN Psych Common Visit Codes: [id number] INP/OBS CARE(Mod) SHIRIN JUARES APRN Nov 13, 2024 12:20
[2024-11-13 19:00] VITALS: RESP 17; O2SAT 99
[2024-11-13 20:00] VITALS: BP 103/61; PULSE 100; RESP 17; TEMP 98.1; O2SAT 97
[2024-11-14 07:00] VITALS: RESP 13
[2024-11-14 10:00] VITALS: RESP 13
--- NOTE | 2024-11-14 11:56 | PROGRESS NOTE ---
Daily Progress Note Providers to CC ~ Antibiotic Timeout Antibiotic Ordered?: No Subjective None, patient is resting comfortably, she declines exam and states she was examined last night . Objective Vital Signs Date Time Temp Pulse Resp B/P (MAP) Pulse Ox O2 Delivery O2 Flow Rate FiO2 11/14/24 10:00 13 11/13/24 20:00 98.1 100 103/61 (75) 97 Room Air 11/13/24 19:00 0.0 Gen. awake alert oriented asymptomatic Declined exam Problem\Assessment\Plan Problems/Diagnosis: (1) Unspecified psychosis Assessment/plan # Gravely disabled adult :On a 5150 hold .Continue treat per psych recommendations # Hypokalemia : ReplaceD per protocol The hospitalist service will continue to follow the patient. I will sign off. Please contact the hospitalist team for any change in patient's medical condition. Date of Service: Nov 14, 2024 Billing Provider: CHRISTINA CASTELAN MD Common Visit Codes: [id number] INP/OBS CARE(LOW) CHRISTINA CASTELAN MD Nov 14, 2024 11:56
--- NOTE | 2024-11-14 14:41 | PROGRESS NOTE ---
Progress Note Dictate Providers to CC ~ Central Line/PICC still needed: N\\A Antibiotic Ordered?: No MRSA Education MRSA Education Provided to pt: No Objective Vitals Vital Signs Date Time Temp Pulse Resp B/P (MAP) Pulse Ox O2 Delivery O2 Flow Rate FiO2 11/14/24 10:00 13 11/14/24 07:00 Room Air 11/13/24 20:00 98.1 100 103/61 (75) 97 11/13/24 19:00 0.0 Psychiatrist's Progress Note Date of Service: Nov 14, 2024 Notes CHART REVIEW Pt is a 24-year-old female who was found by police sitting in a park on a bench mumbling and not making sense. Pt was placed on a hold for GD due to not being able to formulate a plan for food, clothing and longterm. Pt has been difficult to assess since admit, refusing to talk, answering questions with on "yes" or "no" answers, refusing psychiatric assessments and medications. Pt continues to be gravely disabled and unable to formulate a plan for safety. A nursing note states that a male called for the pt and the pt was adament that no one talk to the man. Will continue to attempt to assess the pt for mh sx and safe discharge plan. ASSESSMENT The patient was interviewed in observation room. The patient was actively ambulating in room. The patient endorses "alright." The patient endorses no worsening mental health symptoms. Denies SI. Denies HI. Denies AVH. The patient endorses adequate sleep and food intake. The patient is stable no acute distress noted. The patient as calm, cooperative, and engaged during session. Per staff report patient is medication compliant. Per staff report no abnormal behaviors. Will continue daily assessment and adjusting treatment as needed. Closely monitor behavior and response to medication during hospitalization. Appearnace: Other (APPROPRIATE. WEARING STREET CLOTHING. LONG BROWN HAIR) Speech: Impoverished (NORMAL RATE. NORMAL RHYTHM. NORMAL VOLUME) Eye Contact: Normal Motor Activity: Normal Affect: Full Orientation Impairment: None Memory Impairment: None Attention: Normal Hallucinations: None Other: None Suicidality: None Homicidality: None Delusions: None Behavior: Cooperative Insight: Poor Judgment: Fair Treatment OLANZAPINE 2.5-5 MG P.O. PRN Q.12 HOURS OLANZAPINE 15 MG P.O. Q.H.S. BUPROPION SR 100 MG P.O. B.I.D. TRAZODONE 50 MG P.O. Q.H.S. PRN Monitoring by Staff, Milieu, Group, and Individual counseling as needed -- According to the [place] Suicide Assessment the above named patient is on Q15 MINUTE CHECKS. [id number]-Patient is unable to formulate a plan to safely meet their basic needs of food, clothing, and longterm due to the severity of their mental illness. We are still titrating medications to an effective dose while maintaining a therapeutic environment to prevent decompensation and readmission. Total time spent 30 minutes on REVIEW OF Clinical notes [X ] RN notes [X] PCT documentation [X] SW notes [ X] Labs [ X] Medications [X] Care trends/care activity [X] Vitals [X] DISCUSSION WITH mathematical physicist [X] Staff SW [X] Treatment Team [X] Voice recognition software may have been used to dictate this note. There may be errors due to use of such software. Reporting of serious errors is appreciated. Discharge UNSURE AT THIS TIME. DISCHARGE HOME ONCE STABLE. CODING VISIT-PSYCHIATRY Date of Service: Nov 14, 2024 Billing Provider: SHIRIN JUARES APRN Psych Common Visit Codes: [id number] INP/OBS CARE(Mod) SHIRIN JUARES APRN Nov 14, 2024 14:41
[2024-11-14 19:00] VITALS: RESP 16; O2SAT 99
[2024-11-14 20:00] VITALS: BP 104/60; PULSE 102; RESP 16; TEMP 97.6; O2SAT 99
[2024-11-15 07:00] VITALS: RESP 15
--- NOTE | 2024-11-15 07:26 | ELECTROCARDIOGRAPH REPORT ---
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 CHARLETTE Felix Measurements Intervals [place] Rate: 109 P: 73 [place]: 152 QRS: 88 QRSD: 80 T: 54 QT: 317 QTc: 427 Interpretive Statements Sinus tachycardia Electronically Signed On 11-15-2024 16:44:[address] CHARLETTE Felix Please click the below link to view image of tracing.
[2024-11-15 08:00] VITALS: RESP 15
[2024-11-15 19:00] VITALS: RESP 16; O2SAT 99
[2024-11-15 20:00] VITALS: BP 103/73; PULSE 99; RESP 16; TEMP 98.4; O2SAT 99
[2024-11-16 07:00] VITALS: BP 107/54; PULSE 80; RESP 16; TEMP 98.4; O2SAT 99
[2024-11-16 08:00] VITALS: RESP 16; O2SAT 99
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
[2024-11-16] MEDS: loperamide 2mg capsule PO PRN (13:20)
[2024-11-16] MEDS: OLANZapine 5mg rapidly disint. tablet PO PRN (13:22)
--- NOTE | 2024-11-16 15:50 | PROGRESS NOTE ---
Daily Progress Note Providers to CC ~ Antibiotic Timeout Antibiotic Ordered?: No Subjective Patient was seen in mental health unit , patient looks comfortable ambulating denies any new concerns. As per patient and clinical nursing manager patient we will be discharge soon Objective Vital Signs Date Time Temp Pulse Resp B/P (MAP) Pulse Ox O2 Delivery O2 Flow Rate FiO2 11/16/24 08:00 16 99 Room Air 11/16/24 07:00 98.4 80 107/54 (71) 11/13/24 19:00 0.0 General-patient not in any acute distress, alert awake oriented, age- appropriate, looks comfortable HEENT-atraumatic normocephalic, neck supple without elevated JVD, No lymphadenopathy bilaterally. Eyes-no icterus or pallor seen in eyes Chest-clear to auscultation bilaterally, breathing nonlabored no tachypnea, no wheezing, no crepitation, no crackles. Heart-S1-S2 normal, regular heart rate no murmur Abdomen bowel sounds positive on auscultation, soft nondistended nontender no guarding, no rigidity Skin -dressing present over bilateral forearms Neurology-grossly intact, nonfocal alert awake oriented Extremity- no pedal edema able to move all 4 extremities Psychiatry - patient is not confused or agitated cooperated during physical examination Problem\Assessment\Plan Problems/Diagnosis: (1) Unspecified psychosis Assessment/plan # Gravely disabled adult :On a 5150 hold .Continue treat per psych recommendations # Hypokalemia : ReplaceD per protocol The hospitalist service will continue to follow the patient. I will sign off. Please contact the hospitalist team for any change in patient's medical cond ition. Date of Service: Nov 16, 2024 Billing Provider: MARLA CASTRO MD Common Visit Codes: [id number] INP/OBS CARE(LOW) MARLA CASTRO MD Nov 16, 2024 15:50
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
[2024-11-16 19:00] VITALS: RESP 16; O2SAT 97
[2024-11-16 20:00] VITALS: BP 106/57; PULSE 77; RESP 16; TEMP 97.2; O2SAT 97
[2024-11-17 07:00] VITALS: BP 99/54; PULSE 74; RESP 16; TEMP 97; O2SAT 99
[2024-11-17 08:00] VITALS: RESP 16; O2SAT 99
[2024-11-17] MEDS ORDERED: TRAZ-251 PO (09:14)
[2024-11-17] MEDS ORDERED: BUPR100T15 PO (09:14)
[2024-11-17] MEDS ORDERED: HYDR-3686 PO (09:14)
[2024-11-17] MEDS ORDERED: OLAN5TAB75 PO (09:14)
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
== END 2024-11-17 16:05 | disposition home or self-care (01) | DRG 751 ==
LOC: ER 22:52 → ADULT MH 11-01 16:50 → UNDOADMIN 11-01 16:50 → ADULT MH 11-02 03:50
PROVIDERS: ADMIT Psychiatry & Neurology Psychiatry; ATTEND Psychiatry & Neurology Psychiatry
PROC: GZHZZZZ Group Psychotherapy (ICD-10-PCS; principal; 2024-11-06)
PROC: GZ51ZZZ Individual Psychotherapy, Behavioral (ICD-10-PCS; 2024-11-06)
DX: F23 Brief psychotic disorder (principal); E87.6 Hypokalemia; F41.9 Anxiety disorder, unspecified; Z20.822 Contact with and (suspected) exposure to COVID-19; F32.A Depression, unspecified; Z79.899 Other long term (current) drug therapy; Z87.891 Personal history of nicotine dependence; Z88.8 Allergy status to other drugs, medicaments and biological substances
CPT/HCPCS: 36415; 80048; 80305; 80320; 81003; 81025; 84443; 85025; 87081; 87811; 93005; 99285; A6250

== ENCOUNTER 2025-02-03 13:47 | Emergency (ER) | payer MEDICAID ==
[~2025-02-03] VITALS: Ht 167.6 cm; Wt 74.5 kg
[~2025-02-03 13:47] MED LIST: BUPR100T15 PO; HYDR-3686 PO; OLAN5TAB75 PO; TRAZ-251 PO
[2025-02-03] MEDS ORDERED: TRAZ-251 PO (14:16)
[2025-02-03] MEDS ORDERED: BUPR100T15 PO (14:16)
[2025-02-03] MEDS ORDERED: HYDR-3686 PO (14:16)
[2025-02-03] MEDS ORDERED: OLAN5TAB75 PO (14:16)
--- NOTE | 2025-02-03 14:22 | Physician Documentation ---
HPI ~ General Chief Complaint: Medication Refill Stated Complaint: MED REQUEST Time Seen by MD: 14:05 History of Present Illness HPI Comments This is an otherwise well-appearing 24-year-old female who presents requesting refill of mental health medications, patient reports significant improvement in mental health symptoms after taking medications however has run out of medicati ons. Patient is accompanied by a friend who reports patient has been seen at [facility] and discharged on these medications the patient's and reports patient has been acting completely normal after starting medications however his noticed odd behavior since she has run out of medications. Patient reports no HI or SI. Medication Reconciliation Allergies: Coded Allergies: haloperidol (Verified Adverse Reaction, Intermediate, EPS / Dystonia, 02/03/25) C/O difficulty swallowing and neck dystonia. States she does not want to take this again. risperidone (Verified Adverse Reaction, Intermediate, EPS / Dystonia, 02/03/25) C/O severe dystonic reaction in neck and states she does not want to take this again. Scheduled Bupropion HCl (Bupropion HCl Sr), 100 MG PO BIDBL Olanzapine (Olanzapine), 15 MG PO HS Scheduled PRN Hydroxyzine Hcl* (Atarax*), 50 MG PO Q6H PRN for anxiety Trazodone HCl (Trazodone HCl), 50 MG PO HS PRN for Insomnia Past Medical History Past Medical History: *PSYCH* Patient History: Patient reports no known family medical history. Review of Systems ROS As stated above in the HPI, otherwise all systems are reviewed and negative. Physical Exam Physical Exam Vital Signs: Temperature: 96.9, Source: Temporal, Heart Rate: 90, Respiratory Rate: 18, BP: 134/70, Pulse Oximetry: 100, Weight: 74.500 Oxygen Flow Rate: 0 Physical Exam VITALS: Reviewed and as above. GENERAL: Alert, nontoxic appearing, no apparent distress. RESPIRATORY: No increased work of breathing, no respiratory distress, speaking in full clear sentences NEURO: GCS 15 PSYCH: Bizarre mood and affect, stating no HI or SI Progress Results/Orders Results/Orders Vital Signs 02/03/25 02/03/25 02/03/25 13:54 14:27 14:28 Temp 96.9 96.9 96.9 Pulse 90 90 90 Resp 18 18 18 B/P (MAP) 134/70 134/70 (91) 134/70 Pulse Ox 100 100 100 O2 Flow Rate 0 0 Medical Decision Making Additional information obtaine: other (Friend) Findings This 24-year-old female presented requesting refill of medications she has been prescribed on discharge from [facility], medications were refilled at current dosages as patient and her friend reported patient had much improved symptoms on these medications. Patient is stating no HI or SI in his accompanied by responsible adult, patient was noted to have somewhat bizarre affect and made statements of delusions of her mother stealing her identity, though her friend that accompanies reports that patient has not had her identity stolen by her mother. Patient is otherwise well-appearing and we will be discharged to follow up with primary care provider and primary mental health provider. Patient and her friend has been provided careful return to care precautions, and follow up instructions which they verbalized understanding of. Differential Dx:Considerations: Include: Adverse circumstances, Economic, Psychosocial, Medical services unavail., Medication refill, Medication non- compliance Departure Time of Disposition: 14:21 Disposition: 01 HOME / SELF CARE / HOMELESS Impression: Primary Impression: Medication refill Additional Impression: History of psychiatric disorder Condition: Improved Discharge Instructions: Medicine Refill at the Emergency Department Additional Instructions: I have refilled your medications his time, please see your primary care provider primary mental health provider for refills in the future. You may contact [facility] or the [facility] need help establishing with a primary care provider. Please follow up with your primary care provider in the next few days. Please return to the emergency department for any new or worsening concerning symptoms including but not limited to feelings of self- harm. Referrals: NO PRIMARY CARE PROVIDER (PCP) Prescriptions Hydroxyzine Hcl* (Atarax*) 25 Mg Tablet 50 MG PO Q6H PRN for anxiety for 14 Days, #14 TAB Prov: MICHAEL CASILLAS 02/03/25 Olanzapine (Olanzapine) 5 Mg Tablet 15 MG PO HS for 30 Days, #30 TAB Prov: MICHAEL CASILLAS 02/03/25 Trazodone HCl (Trazodone HCl) 50 Mg Tablet 50 MG PO HS PRN for Insomnia for 30 Days, #30 TAB Prov: MICHAEL CASILLAS 02/03/25 Bupropion HCl (Bupropion HCl Sr) 100 Mg Tablet.er 100 MG PO BIDBL for 30 Days, #60 TAB.SR Prov: MICHAEL CASILLAS 02/03/25 Education Educated: Patient, Other (Friend) Educated regarding: diagnosis, treatment, prognosis, need for follow up Signature Scribe Signature: No scribe Attestation: The note accurately reflects work and decisions made by me.ALLA Dumont 02/03/25 19:40 Parts of this note were created using [employer] voice recognition software progr . While efforts were made to correct any mistakes made by this voice recognition software program, nonsensical phrases may remain in this note. In addition, there may be errors and syntax, grammar, content and spelling. MICHAEL CASILLAS Feb 03, 2025 14:22
[2025-02-03 14:28] VITALS: BP 134/70; PULSE 90; RESP 18; TEMP 96.9; O2SAT 100
== END 2025-02-03 14:29 | disposition home or self-care (01) ==
LOC: ER 13:47
DX: F99 Mental disorder, not otherwise specified (principal); Z76.0 Encounter for issue of repeat prescription; Z88.8 Allergy status to other drugs, medicaments and biological substances; Z79.899 Other long term (current) drug therapy
CPT/HCPCS: 99283

== ENCOUNTER 2025-03-18 20:31 | Emergency (ER) | payer MEDICAID ==
[2025-03-18 21:21] VITALS: BP 125/65; PULSE 88; RESP 15; TEMP 97.6; O2SAT 98
--- NOTE | 2025-03-19 00:07 | Physician Documentation ---
History of Present Illness General Chief Complaint: Post-operative complication Stated Complaint: R LEG CAST Time Seen by MD: 23:03 History of Present Illness Initial Comments This is a 24-year-old female status post surgical repair of a spiral fracture of her tib-fib in [place], [place], who missed a follow-up appointment with her orthopedic surgeon, presents today with a request of rear wrapping of her splint. She had taken apart the Conrad wrap and a splint because her leg was itchy. Unfortunately the patient also is noncompliant with the prescribed a non weight bearing, not using her crutches. She is out of her pain medication. Denies any new injury. Denies any other concerns. Denies any concern for tobacco, alcohol or illicit substances use Medication Reconciliation Allergies: Coded Allergies: haloperidol (Verified Adverse Reaction, Intermediate, EPS / Dystonia, 03/18/25) C/O difficulty swallowing and neck dystonia. States she does not want to take this again. risperidone (Verified Adverse Reaction, Intermediate, EPS / Dystonia, 03/18/25) C/O severe dystonic reaction in neck and states she does not want to take this again. Scheduled Bupropion HCl (Bupropion HCl Sr), 100 MG PO BIDBL Olanzapine (Olanzapine), 15 MG PO HS Scheduled PRN Hydroxyzine Hcl* (Atarax*), 50 MG PO Q6H PRN for anxiety Trazodone HCl (Trazodone HCl), 50 MG PO HS PRN for Insomnia Past Medical History Past Medical History: *PSYCH* Review of Systems ROS 10 point review of systems was performed and unless noted above in HPI is negative for acute process/complaint. Physical Exam Physical Exam Vital Signs: Temperature: 97.6, Source: Temporal, Heart Rate: 88, Respiratory Rate: 15, BP: 125/65, Pulse Oximetry: 98 Physical Exam Physical examination: GENERAL: Awake, alert, oriented, GCS 15, no apparent distress, non-toxic appearing, answers questions, follows commands appropriately. HEENT: Atraumatic, normocephalic, pupils equal, extraocular muscles intact Active gross movements, sclerae anicteric, mucus membranes moist, no stridor. NECK: Midline, no JVD CARDIOVASCULAR: Good skin perfusion without evidence of pallor, mottling. PULMONARY: Nonlabored, symmetric chest rise, no audible wheezing, no accessory muscle use, no respiratory distress, speaking in full sentences. GASTROINTESTINAL: Not distended. NEUROLOGIC: Lucid with normal mental status. Normal facial symmetry. Moves all extremities symmetrically and with purpose. No truncal ataxia. Speech is fluid without evidence of dysarthria or aphasia, no focal deficits appreciated. EXTREMITIES: Acute deformities Skin: warm, dry PSYCHIATRIC: Normal affect, normal insight, normal concentration. Focused exam: Left lower extremity is in a short-leg cataracts splint. Neurovascularly intact. The Conrad wrap that is was supposed to support the splint is meticulously destroyed and shredded. Remains of the Conrad wrap has been have haphazardly rewrapped around the splint. Patient is here with a walker. Progress Results/Orders Results/Orders Vital Signs 03/18/25 21:21 Temp 97.6 Pulse 88 Resp 15 B/P (MAP) 125/65 Pulse Ox 98 Medical Decision Making Additional information obtaine: family Findings Facility Status: ED Holds, RME process The plan was discussed with the patient, who demonstrates clear understanding of the plan and is in agreement with the plan unless otherwise noted in the chart. All questions have been answered, all concerns were addressed unless otherwise documented. I was available throughout their ED stay for frequent reassessment and questions . Differential Diagnoses (considered and possible or likely): [Visit with a request for splint care, postoperative pain management, unlikely new injury, unlikely recurrence fracture] ??Differential Diagnoses (considered and unlikely, not requiring evaluation currently): [No evidence of neurovascular damage] MDM Data Please see [facility] for the following: Independent Historians and external Records Review. Historian: [Patient] Independent Historians: ?[Family member] Medication Management: [Reviewed medication list] Social History and determinants: [Reviewed] Please see the body of the note for the following: Any independent interpretations of ECG, imaging studies. All vitals signs/haemodynamics, ordered tests were independently reviewed and interpreted by myself. Nursing triage complaint and vitals reviewed, additional nursing notes were reviewed as available and I agree unless otherwise noted or documented in contradiction in the chart Vital Signs: Independently reviewed Labs: Independently interpreted Imaging: Independently interpreted Old Medical Records: Independently reviewed, see [facility] for relevant summary and information Additionally notably showing: [Hemodynamically stable] Tests considered but not ordered include: [Hematologic workup and imaging has been considered but does not appear to be necessary given clinical nature of diagnosis] Social Determinants of Health Impact: Patient was evaluated in [facility], or [facility] [place] due to below par ratio of patient to medical providers. [] Comorbid Conditions Impacting Present Evaluation and Care/Treatment: [Recent surgery] Management Discussions with other Healthcare Providers: [None] Treatment and Disposition Medication Management (Given or considered): []. See EMR for details Consideration for Hospitalization/Escalation/Deescalation of Care: Admission for observation has been considered, [however the patient is able to tolerate p.o., their symptoms are controlled, they are able to rely on oral medications, and their chief complaint/diagnosis can be managed on outpatient basis.] ?ED Course:?[Existing splint was rewrapped. The patient was advised to follow- up with her orthopedic surgeon both for her postoperative care as well at postoperative pain management] ?Shared decision making:?[Patient is hemodynamically stable for discharge home with follow with their primary care provider. [ ] Specific and cautious return precautions provided and discussed with full understanding. Any incidental findings were also discussed and follow up recommendations given. [] All questions answered. Patient/family were able to verbalize back return precautions. Patient/family agree to plan. Copies of imaging and laboratory studies were provided.] Code status:?FULL Please see the full Electronic Medical Record for full details of nursing documentation, medications list, other records of complete past medical history and conditions, vital signs, laboratory studies, and any radiologic study interpretations by radiologists. Portions of this note were completed using [employer] dictation software and as a result there may exist minor errors in spell ing. I have reviewed elements of past family and social history and agree as included in note. Differential Diagnosis See the body of main note for differential diagnosis Departure Disposition: 01 HOME / SELF CARE / HOMELESS Impression: Primary Impression: Aftercare for cast or splint check or change Additional Impression: Postoperative pain Condition: Improved Discharge Instructions: Cast or Splint Care, Adult Additional Instructions: You need to follow-up with the orthopedic surgeon both for your splint care as well as for your pain management. If you were instructed to be nonweightbearing, under no circumstances put any weight on the affected extremity. Doing so may result in permanent disability and chronic pain. Referrals: NO PRIMARY CARE PROVIDER (PCP) Education Educated: Patient, Family Educated regarding: diagnosis, treatment, need for follow up Signature Scribe Signature: No scribe Attestation: The note accurately reflects work and decisions made by me.Clint Munguia, 03/19/25 00:07 CLINT MUNGUIA DO Mar 19, 2025 00:07
== END 2025-03-19 00:22 | disposition home or self-care (01) ==
LOC: ER 20:32
DX: G89.18 Other acute postprocedural pain (principal); M96.89 Other intraoperative and postprocedural complications and disorders of the musculoskeletal system; Z88.8 Allergy status to other drugs, medicaments and biological substances; Z79.899 Other long term (current) drug therapy
CPT/HCPCS: 99282

== ENCOUNTER 2025-04-05 16:31 | Emergency (ER) | payer MEDICAID ==
[~2025-04-05] VITALS: Ht 170.2 cm; Wt 80.4 kg
[2025-04-05 16:41] VITALS: BP 114/70; PULSE 99; RESP 16; O2SAT 98
--- NOTE | 2025-04-05 19:41 | Physician Documentation ---
History of Present Illness ~ Chief Complaint: Post-operative complication Stated Complaint: POST-OP CARE Time Seen by MD: 17:03 OK to notify your PCP?: Yes Source: patient Mode of Arrival: POV Exam Limitations: no limitations HPI This is a 24-year-old female who comes in for recheck of a open reduction internal fixation of a left tibial spiral fracture. For some reason with the patient has a very poor historian and can not recall with the exact dates that is the injury or surgery took place. I saw the patient was here on March 18 and has a time it was noted that she had the surgery done in [facility]. It seems as though it was done some time in February which was well over a month ago. The patient states she has not been able to follow up with the orthopedic surgeon because it is too far away. She has a try occlusive splint in place that has not been taking down since the surgery. She states that is sutures are still in place. The patient is this is essentially here for a recheck. She denies any worsening symptoms. Tetanus witin 5 years: No Medication Reconciliation Allergies: Coded Allergies: haloperidol (Verified Adverse Reaction, Intermediate, EPS / Dystonia, 04/05/25) C/O difficulty swallowing and neck dystonia. States she does not want to take this again. risperidone (Verified Adverse Reaction, Intermediate, EPS / Dystonia, 04/05/25) C/O severe dystonic reaction in neck and states she does not want to take this again. Scheduled Bupropion HCl (Bupropion HCl Sr), 100 MG PO BIDBL Olanzapine (Olanzapine), 15 MG PO HS Scheduled PRN Hydroxyzine Hcl* (Atarax*), 50 MG PO Q6H PRN for anxiety Trazodone HCl (Trazodone HCl), 50 MG PO HS PRN for Insomnia Past Medical History Past Medical History: *PSYCH* Patient History: Patient reports no known family medical history. Physical Exam Vital Signs: Temperature: 97.9, Source: Temporal, Heart Rate: 99, Respiratory Rate: 16, BP: 114/70, Pulse Oximetry: 98, Weight: 80.400 Oxygen Flow Rate: 0 Pulse Oximetry Reflects: adequate oxygenation General Appearance: alert, WD/WN, no apparent distress Legs To inspection of the left lower extremity the patient has a try occlusive Orthoglass splint in place. I took the splint down and saw with the patient has sutures in place and muffled different sites. No wound dehiscence. The sutures are well healed. No signs of bacterial infection. No significant discoloration or edema of the left lower extremity. Mild tenderness to palpation of the mid shaft tib-fib without obvious crepitus or deformity. Left dorsalis pedis pulses 2+ and cap refill less than 2 seconds and brisk in the digits of the left foot. Progress Results/Orders Reviewed/noted all lab results: Yes Results/Orders Orders - JAY AL Tib/Fib (04/05/25 19:40) Completed Orders - JAY AL Tib/Fib (04/05/25 19:40) Vital Signs 04/05/25 16:41 Temp 97.9 Pulse 99 Resp 16 B/P (MAP) 114/70 Pulse Ox 98 O2 Flow Rate 0 Medical Decision Making Additional information obtaine: old records Findings [facility] performed an x-ray of the left tib-fib which shows hardware in place and a healing fracture. I had the sutures removed in his has been in for several weeks and the patient states she is not going to follow up with the orthopedic surgeon that is performed the surgery. There was nothing to indicate infection at this time. I had the patient placed in a boot and told her to weightbear as tolerated. At this point it with the patient has not going to follow up with the orthopedic surgeon I told her to follow up with the primary care physician or [facility] General Diff Dx:Considerations: Include: Abrasion, Contusion, Fracture, Hematoma, Laceration, Malunion, Neurovascular injury, Open fracture, Sprain, Ulcer, Other Knee Diff Dx:Considerations: Include: Abrasion, Arthritis, Contusion, DJD, Fracture-femur, Fracture-fibula, Fracture-patella, Fracture-tibia, Gout, Hematoma, Laceration, Meniscus injury, Neurovascular injury, Open fracture, Rheumatoid arthritis, Septic, Sprain, Sprain-MCL, Sprain-LCL, Sprain-ACL, Sprain-PCL, Other Ankle Diff Dx:Considerations: Include: Abrasion, Arthritis, Contusion, DJD, Fr acture-metatarsal, Fracture-fibula, Fracture-tarsal, Fracture-tibia, Gout, Hematoma, Laceration, Malunion, Neurovascular injury, Nonunion, Open fracture, Osteomyelitis, Rheumatoid arthritis, Sprain, Septic, Ulcer, Other Foot Diff Dx:Considerations: Include: Abrasion, Arthritis, Cellulitis, Contusion, Dislocation, DJD, Fracture-metatarsal, Fracture-phalynx, Fracture- tarsal, Gout, Hematoma, Ingrown toenail, Laceration, Malunion, Neurovascular injury, Open fracture, Paronychia, Puncture, Rheumatoid, Sprain, Septic, Subungual hematoma, Ulcer, Other Toe Diff Dx:Considerations: Include: Abrasion, Cellulitis, Contusion, Dislocation, Felon, Fracture, Hematoma, Laceration, Neurovascular injury, Open fracture, Paronychia, Subungual hematoma, Other Additional Comment Left tibial spiral fracture status post open reduction internal fixation. Wound check. Departure Disposition: HOME / SELF CARE / HOMELESS Impression: Primary Impression: Fracture of tibial shaft, left, closed Condition: Stable Discharge Instructions: Tibial Fracture, Adult Additional Instructions: I strongly suggest you follow up with the primary care physician or with the orthopedic surgeon that performed the surgery. Elevate the leg frequently. Use the boot and weightbear as tolerated. Ibuprofen for pain. Go to the nearest ER for any worsening or concerning symptoms. Referrals: NO PRIMARY CARE PROVIDER (PCP) Signature Scribe Signature: No scribe Attestation: The note accurately reflects work and decisions made by me.Jay ANNA 04/05/25 20:02 JAY AL Apr 05, 2025 19:41
--- NOTE | 2025-04-05 19:55 | RADIOLOGY REPORT ---
CLINICAL INDICATION: Prior fracture with open reduction internal fixation LEFT TECHNIQUE: 2 radiographic views of the left tibia and fibula were obtained. COMPARISON: None FINDINGS/IMPRESSION: There is plate and screw fixation of the distal tibia. Intramedullary jhonny and screw fixation of the tibia. Linear lucencies over the distal tibial shaft which may represent part of the prior fracture with No prior imaging for comparison. Recommend clinical correlation Mild soft tissue edema of the distal lower leg and ankle.
[2025-04-05 20:16] VITALS: TEMP 97.9
== END 2025-04-05 20:17 | disposition home or self-care (01) ==
LOC: ER 16:31
DX: S82.242A Displaced spiral fracture of shaft of left tibia, initial encounter for closed fracture (principal); Z88.8 Allergy status to other drugs, medicaments and biological substances; Z79.899 Other long term (current) drug therapy; X58.XXXA Exposure to other specified factors, initial encounter; Y93.89 Activity, other specified; Y92.89 Other specified places as the place of occurrence of the external cause; Y99.8 Other external cause status
CPT/HCPCS: 73590; 99283; L4360; A6449